=== PATIENT | male | born 1990 | race Caucasian/White ===

== ENCOUNTER → 2017-10-20 | Outpatient (CLI) | payer BC ==
[~2017-10-20] MED LIST: ALBU1AER9 INH
--- NOTE | 2017-10-20 12:09 | DIAGNOSTIC IMAGING REPORT ---
C-SPINE ROUTINE 4 OR 5 VIEWS HISTORY: Pain. Radiculopathy. CERVICAL RADICULOPATHY COMPARISON: None. FINDINGS: The cervical spine is visualized from C1 through the superior endplate of T1. Mild straightening of the cervical curvature. Minimal osteophytic narrowing of the bulk of the neuroforamina bilaterally. No evidence for a high degree of stenotic change. No evidence for subluxation. C1-C2 complex is intact. No subluxation. IMPRESSION: 1. Straightening/mild reversal of normal cervical curvature most likely due to muscular spasm. 2. Minimal degenerative osteophytic change. The above report was generated using voice recognition software. It may contain grammatical, syntax or spelling errors. Electronically signed by: Samuel Rascon M.D. 10/20/2017 12:07 PM Dictated Date/Time: 10/20/2017 12:06 PM
--- NOTE | 2017-10-20 12:16 | DIAGNOSTIC IMAGING REPORT ---
RIGHT SHOULDER 3 VIEWS CLINICAL HISTORY: Cervical radiculopathy. Right arm pain. FINDINGS: 3 views of the right shoulder are obtained. No prior studies are available for comparison at the time of dictation. The skeletal structures are well mineralized. No fracture or dislocation is seen. The glenohumeral and acromioclavicular joints are well-maintained. The overlying soft tissues are within normal limits. The visualized right lung parenchyma appears clear. IMPRESSION: Unremarkable radiographic assessment of the right shoulder. Electronically signed by: Venkata Maki M.D. 10/20/2017 12:14 PM Dictated Date/Time: 10/20/2017 12:14 PM
== END | disposition home or self-care (01) ==
LOC: C.RAD 11:32
PROVIDERS: ATTEND Nurse Practitioner
DX: M54.12 Radiculopathy, cervical region (principal)